=== PATIENT | female | born 1960 | race Caucasian/White ===

== ENCOUNTER → 2017-02-04 | Outpatient (CLI) | payer OTHER ==
[~2017-02-04] MED LIST: AMLO10TA2 PO; CYCL10TA2 PO; GABA-586 PO; GLUC1TAB71 PO; KAVA200C PO; LISI1TAB5 PO; LOVA20TA2 PO; MULT-460 PO; NAPR500T3 PO; OXYC1TAB7 PO; PANT40TA5 PO; SERT100T PO
[2017-02-04 15:39] LABS: BASO # 0.1 x10^3/uL (0.0-0.2); BASO % 1 % (0-3); EOS % 4 % (0-3); HEMATOCRIT 43.6 % (36.0-47.0); HEMOGLOBIN 14.8 g/dL (12.0-15.5); LYMPH # 4.2 x10^3/uL (1.0-4.8); LYMPH % 34 % (24-48); MEAN CORPUSCULAR HEMOGLOBIN 32 pg (25-35); MEAN CORPUSCULAR HGB CONC 34 g/dL (31-37); MEAN CORPUSCULAR VOLUME 95 fL (79-100); MONO % 9 % (0-9); NEUT % 52 % (31-73); PLATELET COUNT 217 x10^3/uL (140-400); RED BLOOD COUNT 4.59 x10^6/uL (3.50-5.40); RED CELL DISTRIBUTION WIDTH 12.9 % (11.5-14.5); WHITE BLOOD COUNT 12.2 x10^3/uL (4.0-11.0)
[2017-02-04 15:56] LABS: INR 0.9 (0.8-1.1); PROTHROMBIN TIME PATIENT 11.9 SEC (11.7-14.0)
[2017-02-04 15:58] LABS: ALBUMIN 3.8 g/dL (3.4-5.0); CALCIUM 9.4 mg/dL (8.5-10.1); CREATININE 0.8 mg/dL (0.6-1.0); GFR 74.5; POTASSIUM 3.6 mmol/L (3.5-5.1); TOTAL BILIRUBIN 0.3 mg/dL (0.2-1.0); TOTAL PROTEIN 7.7 g/dL (6.4-8.2)
== END | disposition home or self-care (01) ==
LOC: SURGPAT 10:58
PROVIDERS: ATTEND Neurological Surgery
DX: M54.16 Radiculopathy, lumbar region (principal)
CPT/HCPCS: 36415; 80053; 85027; 85610; 85730; 87641

== ENCOUNTER 2017-02-06 06:51 | Day surgery (SDC) | payer OTHER ==
[~2017-02-06] VITALS: Ht 162.6 cm; Wt 73.2 kg
[~2017-02-06 06:51] MED LIST changes: +BACITRACIN 50,000 UNIT in IV NORMAL SALINE 1000ML BAG 1,000 ML IRR ONE; +VANCOMYCIN 1GM IVPB FOR OMNI 250 ML IV PRN
[2017-02-06] MEDS ORDERED: LIDOCAINE 1% 1 ML SYRINGE. ID PRN (07:00)
[2017-02-06] MEDS ORDERED: MORPHINE SULFATE 2 MG/ML DISP.SYRIN. IV PRN (07:00)
[2017-02-06] MEDS ORDERED: IV RINGERS,LACTATED 1000ML 1,000 ML IV SCH ×2 (07:00)
[2017-02-06] MEDS ORDERED: PROCHLORPERAZINE 10 MG/2 ML VIAL. IV PRN (07:00)
[2017-02-06] MEDS ORDERED: fentaNYL PF VIAL 100 MCG/2 ML VIAL IV PRN (07:00)
[2017-02-06] MEDS ORDERED: ONDANSETRON PF 4 MG/2 ML VIAL. IV PRN (07:00)
[2017-02-06] MEDS ORDERED: HYDROmorphone 2 MG/ML VIAL IV PRN (07:00)
[2017-02-06] MEDS ORDERED: LIDOCAINE 1%/EPI 1:100,000 20 ML VIAL. ONE (07:39)
[2017-02-06] MEDS ORDERED: THROMBIN TOPICAL 20,000 UNIT SPRAY.SYRN KIT TP ONE (07:40)
[2017-02-06] MEDS ORDERED: GELATIN SPONGE SIZE 100. ONE (07:40)
[2017-02-06] MEDS ORDERED: BUPIVACAINE 0.5% 50 ML VIAL. ONE (07:40)
[2017-02-06] MEDS ORDERED: PROPOFOL 50 ML IV ONE (08:08)
[2017-02-06] MEDS ORDERED: DEXAMETHASONE SOD PHOS 20 MG/5 ML VIAL. ONE (08:08)
[2017-02-06] MEDS ORDERED: LIDOCAINE 2% PF Vial for OR 5 ML VIAL. ONE (08:08)
[2017-02-06] MEDS ORDERED: ONDANSETRON PF 4 MG/2 ML VIAL. ONE (08:08)
[2017-02-06] MEDS ORDERED: 0.9 % SODIUM CHLORIDE 50 ML VIAL. IJ ONE (08:08)
[2017-02-06] MEDS ORDERED: ROCURONIUM 50 MG/5 ML VIAL. ONE (08:08)
[2017-02-06] MEDS ORDERED: REMIFENTANIL 2 MG VIAL. IV ONE (08:08)
[2017-02-06] MEDS ORDERED: PHENYLEPHRINE 10 MG/ML VIAL. ONE (08:08)
[2017-02-06] MEDS ORDERED: PROPOFOL 20 ML IV ONE (08:08)
[2017-02-06] MEDS ORDERED: MINERAL OIL/PETROLATUM,WHITE OPHTH OINT 3.5GM TUBE. ONE (08:09)
[2017-02-06] MEDS ORDERED: MIDAZOLAM HCL/PF 2 MG/2 ML VIAL. ONE (08:10)
[2017-02-06] MEDS ORDERED: fentaNYL PF VIAL 100 MCG/2 ML VIAL IV ONE (08:15)
--- NOTE | 2017-02-06 08:26 | ACF ---
Admission Forms Criteria MUSCULOSKELETAL DISEASE GRG Clinical Indications for Admission to Inpatient Care (Place 'X' for any and all applicable criteria): Hospital admission is needed for appropriate care of the patient because of 1 or more of the following: [ ]I. Fracture, dislocation, or other musculoskeletal injury requiring inpatient care(medical) as indicated by 1 or more of the following(4)(5)(6)(7) [ ]a) Vertebral fracture requiring observation for instability or neurologic compromise (8) [ ]b) Compartment syndrome (proven or cannot be ruled out during observation level of care) (9) [ ]c) Limb-threatening injury [ ]d) Major injury requiring inpatient stabilization such as traction initiation or external fixation before internal fixation or closure of complex or open fracture [ ]e) Major injury requiring inpatient treatment after emergency or observation level care (as appropriate) [ ]f) Severe pain requiring acute inpatient management [ ]g) Injury with suspicion of abuse or neglect (eg., child, dependent elderly) [ ]II. Newly diagnosed or suspected bone, joint, or orthopedic device infection (e.g., osteomyelitis, septic arthritis) needing 1 or more of the following(1)(2)(3) [ ]a) IV antibiotics that cannot be initiated in other than inpatient setting (e.g., patient too unstable or home infusion not available) [ ]b) Device removal or replacement [ ]c) Bone or soft tissue debridement [ ]d) Joint drainage (drain placement or repetitive aspirations) [ ]III. Severe rheumatologic disease (e.g., systemic lupus erythematosus, rheumatoid arthritis) with complications or comorbidities (Also use Optimal Recovery Care Criteria or General Recovery Criteria as appropriate on the basis of predominant condition), including 1 or more of the following( 10)(11)(12)(13) [ ]a) Severe infection (e.g., DISTRICT MANAGER infection, sepsis) (14) [ ]b) Respiratory complications, including 1 or more of the following : [ ]i) Pleural effusion with respiratory compromise [ ]ii) Pulmonary hypertension with congestive failure [ ]iii) Respiratory failure [ ]iv) Pulmonary hemorrhage (15) [ ]c) Hematologic disease, including 1 or more of the following: [ ]i) Coagulopathy with bleeding [ ]ii) Thrombosis with hypercoagulable state [ ]iii) Thrombotic thrombocytopenic purpura [ ]d) Cerebritis with seizures, psychosis, or other severe abnormalities [ ]e) Vertebral destruction with monitoring needed for cervical myelopathy& possible respiratory compromise [ ]f) Exacerbation that requires inpatient treatment (e.g., intravenous immunosuppression) (16) [ ]g) Acute renal failure [ ]h) Cerebritis with seizures, psychosis, Altered mental status, or other neurologic abnormalities [ ]i) Pericardial effusion with tamponade [ ]j) Vertebral destruction, with monitoring needed for cervical myelopathy and possible respiratory compromise [ ]IV. Severe vasculitis with complications or comorbidities (Also use Optimal Recovery Care Criteria General Recovery Criteria as appropriate on the basis of predominant condition), including 1 or more of the following(11)(12)(17)(18)(19)(20) [ ]a) Exacerbation that requires inpatient treatment (e.g., intravenous immunosuppression) (19)(21) [ ]b) Pulmonary hemorrhage (15) [ ]c) DISTRICT MANAGER vasculitis with seizures, psychosis, Altered mental status that is severe or persistent, or other severe abnormalities (22) [ ]d) Cerebral infarction [ ]e) Gastrointestinal ischemia [ ]f) Gangrene or threatened amputation [ ]g) Renal failure (16) [ ]h) Other significant complications of vasculitis ( eg., tissue or organ ischemia, organ dysfunction ) [ ]V. Severe myopathy as indicated by 1 or more of the following (28)(29) [ ]a) New onset of airway compromise or inability to swallow [ ]b) Respiratory deterioration with observation needed for impending respiratory failure [ ]c) Exacerbation that requires inpatient treatment (e.g., intravenous immunosuppression) [ ]. Severe crystal gout (arthropathy) indicated by 1 or more of the following (23)(24) [ ]a) Severe pain requiring acute inpatient management [ ]b) Exacerbation that requires inpatient treatment (e.g., intravenous treatment) [ ]VII.Rhabdomyolysis and 1 or more of the following (25)(26)(27) [ ]a) Acute renal failure [ ]b) Need for intravenous hydration after emergency or observation level care (as appropriate) [ ]c) Inability to maintain oral hydration [ ]d) Change in mental status [ ]e) Electrolyte abnormality that remains after emergency or observation level care (as appropriate) [ ]VIII Post amputation complication, as indicated by ANY ONE of the following [ ]a) Infection [ ]b) Dehiscence [ ]c) Myodesis failure [X]IX. Severe pain requiring acute inpatient management due to musculoskeletal condition [ ]X. Musculoskeletal Disease and ALL of the following: [ ]a) Symptom or finding for which emergency and observation care have failed or are not considered appropriate (Use General Criteria: Observation Care as appropriate) [ ]b) Presence of ANY ONE of the following [ ]i) A General Admission Criteria [ ]ii) A Pediatric General Admission Criteria The original [facility] [email or web address] content created by [employer] has been revised. The portions of the content which have been revised are identified through the use of italic text or in bold, and [facility] has neither reviewed nor approved the modified material. All other unmodified content is copyright [employer] [email or web address]. Please see references footnoted in the original [facility] [employer] [email or web address] edition 2016 GIFTY CRONIN Feb 06, 2017 08:26
[2017-02-06] MEDS ORDERED: SUCCINYLCHOLINE 200 MG/10 ML VIAL. ONE (08:47)
[2017-02-06] MEDS ORDERED: GLYCOPYRROLATE 1 MG/5 ML VIAL. ONE (09:23)
[2017-02-06] MEDS ORDERED: DESFLURANE > 120 MINUTES IH ONE (09:26)
[2017-02-06] MEDS ORDERED: DESFLURANE 61 TO 120 MINUTES IH ONE (09:26)
[2017-02-06] MEDS: fentaNYL PF VIAL 100 MCG/2 ML VIAL IV PRN ×2 (11:19→11:26)
--- NOTE | 2017-02-06 11:30 | PDOC ---
BRIEF OPERATIVE NOTE Date: Feb 06, 2017 Pre-Op Diagnosis lumbar radiculopathy, lumbar disk herniation Post-Op Diagnosis same Procedure Performed left L1-2 hemilaminotomy with discectomy Surgeon Rhys [employer] Mail Entry Clerk none Anesthesiologist Rad Anesthesia Type: General Blood Loss 50mL Specimens Obtained disk and decompression Findings herniated disk left L1-2 with mass effect on the adjacent neural elements Complications none apparent Additional Remarks neuromonitoring potentials remained at least baseline throughout the procedure KARLEY FARMER MD Feb 06, 2017 11:29
--- NOTE | 2017-02-06 11:34 | DISCH ---
DISCHARGE INSTRUCTIONS Condition on Discharge Condition on Discharge: Stable Activity After Discharge Activity Instructions for Disc: Avoid exertion, Progressive ambulation, Other, see below (avoid strenuous activity, no excess twisting or bending, no lifting more than 10 lbs) Lifting Instructions after Dis: Do not lift >10 pounds Wound Incision Care Wound/Incision Care: Ice to area for comfort, Other, see below (keep incision clean and dry; do not soak, scrub, or submerge incision; may remove dressing day 3 after surgery) Contacting the after DC Call your doctor for: Concerns you may have Follow-Up Follow up with: Neurosurgery, Dr. Farmer in two weeks [phone] KARLEY FARMER MD Feb 06, 2017 11:34
[2017-02-06] MEDS ORDERED: oxyCODONE/APAP 5/325 1 TAB TABLET PO PRN (12:00)
[2017-02-06 12:40] VITALS: BP 113/65
--- NOTE | 2017-02-07 11:25 | OP ---
DATE OF SURGERY: 02/06/2017 SURGEON: Radames Farmer M.D. CANDLE MOLDER: None. PREOPERATIVE DIAGNOSES: Lumbar radiculopathy with lumbar disk herniation. POSTOPERATIVE DIAGNOSES: Lumbar radiculopathy with lumbar disk herniation. PROCEDURE: Left lumbar 1-2 hemilaminotomy with diskectomy with intraoperative use of neuromonitoring, and intraoperative use of microscope. ANESTHESIA: General. COMPLICATIONS: None intraprocedurally. INDICATIONS FOR THE PROCEDURE: The patient is a 56-year-old female with left lower extremity pain and a prominent disk herniation on the left lumbar 1-2 with mass effect on the neural elements well below the ____. She has been refractory to multiple nonsurgical treatments. Please refer to the patient chart for additional details. DESCRIPTION OF PROCEDURE: After informed consent was obtained, the patient was brought into the operating room. She was placed under general anesthesia. She was placed in the prone position on the Ian table. All pressure points were checked and padded appropriately. The lumbar region was prepped and draped in the usual sterile fashion. An appropriate incision location was localized with fluoroscopy and a vertical incision was centered over the region of lumbar 1-2; this was made with a 10 blade scalpel. Monopolar electrocautery was utilized to dissect the avascular midline to lumbar 1-2 and leftward across the lamina at this location. The level was again verified with fluoroscopy prior to the initiation of the hemilaminotomy. The hemilaminotomy was performed at the inferior aspect of lumbar 1 and slightly at the superior aspect of lumbar 2 to approach the underlying ligaments. This was performed with a pneumatic drill as well as a Kerrison rongeur. The underlying ligament was dissected free and removed from the thecal sac with Kerrison rongeur. The thecal sac was gently retracted medially and a prominent annulus was identified at lumbar 1-2 with underlying disk material. A small incision was made over the annulus at lumbar 1-2 with 11 blade scalpel and disk material emerged under pressure. This material was gently teased posterolaterally with a blunt nerve hook with some dissection with a Sukhjinder. This was removed in a piecemeal fashion with a pituitary rongeur. Upon completion of this, the annulus was noted to be quite flap and the adjacent neural elements were noted to be very well decompressed. This was verified with direct visualization as well as gentle palpation with a blunt hook and a Sukhjinder. Upon completion of the decompression neuromonitoring potentials remained ____ at the baseline. The wound was generously irrigated with antibiotic irrigation prior to final closure. Pristine hemostasis was achieved with FloSeal, cottonoids and some use of bipolar electrocautery. The muscles and fascia were then reapproximated with 0 Vicryl in a simple interrupted fashion. Subcutaneous tissues were reapproximated with 2-0 Vicryl in an interrupted and inverted fashion. Skin was reapproximated with 4-0 Vicryl in a running subcuticular fashion. Mastisol and Steri-Strips were applied and the wound was dressed with Telfa and Tegaderm. At the end the procedure, all needle and sponge counts correct x 2. The patient was extubated in the operating room and taken to recovery in stable condition. There were no intraprocedural complications apparent. RADAMES FARMER MD DR: ULISES/angel JOB#: [id number] / [id number]
--- NOTE | 2017-02-07 13:54 | PATHOLOGY ---
PATHOLOGY REPORT * * * * * * * * FINAL DIAGNOSIS: Cartilage and bone, "lumbar disc and decompression": - Fragments of cartilage and bone consistent with disc material. ([facility]; d/t: 02/07/17) REPORT ELECTRONICALLY SIGNED BY: Keith Singh M.D. DATE/TIME: 02/07/2017 13:53 * * * * * * * * GROSS PATHOLOGY: Received in formalin labeled "Barbara Sosa, lumbar disc and decompression" are multiple segments of florence, rubbery, and gritty tissue admixed with bone. The specimen measures 2.8 x 2.5 x 0.9 cm in aggregate dimensions. The tissue is submitted representatively in cassette A1, following decalcification. ([facility]; 02/06/17) INITIAL CPT CODE(S): A; 39451, 15048 Professional services performed by [facility] [place] [address] Technical services performed by [facility] at [address] [place] [address], [facility] [address], [place] [address]. SPECIMEN(S) RECEIVED: A.Lumbar disc and decompression CLINICAL HISTORY: Lumbar radiculopathy PATIENT: BARBARA SOSA /AGE: 1208/02/1960 (Age: 56) PATIENT #: [id number] ALT CASE #: SPECIMEN COLLECTION DATE: 02/06/2017 SPECIMEN RECEIVED DATE: 02/06/2017 [facility] - [address] [place] [address] - PHONE: [phone] * * * END OF REPORT * * *
== END 2017-02-06 12:47 | disposition home or self-care (01) ==
LOC: SURG 06:51
PROVIDERS: ATTEND Neurological Surgery
DX: M51.16 Intervertebral disc disorders with radiculopathy, lumbar region (principal); E78.00 Pure hypercholesterolemia, unspecified; I10 Essential (primary) hypertension; F41.9 Anxiety disorder, unspecified; F32.9 Major depressive disorder, single episode, unspecified; E16.2 Hypoglycemia, unspecified; F17.200 Nicotine dependence, unspecified, uncomplicated; Z98.51 Tubal ligation status; Z72.0 Tobacco use; Z90.710 Acquired absence of both cervix and uterus; Z87.39 Personal history of other diseases of the musculoskeletal system and connective tissue; Z86.69 Personal history of other diseases of the nervous system and sense organs; Z88.8 Allergy status to other drugs, medicaments and biological substances; Z88.1 Allergy status to other antibiotic agents; Z88.3 Allergy status to other anti-infective agents; Z91.040 Latex allergy status
CPT/HCPCS: 63030; 76000; J0330; J1100; J2250; J2405; J2704; J3010; J3370; J3490; J7030; J7120; 88304; 88311; J0780; J2270